=== PATIENT | female | born 1970 | race Asian ===

== ENCOUNTER 2023-10-22 15:30 | Outpatient (CLI) | payer MEDICAID ==
[2023-10-22 22:11] LABS: BACTERIAL VAGINOSIS DNA POSITIVE (NEGATIVE); CANDIDA GLABRATA DNA NEGATIVE (NEGATIVE); CANDIDA GROUP DNA NEGATIVE (NEGATIVE); CANDIDA KRUSEI DNA NEGATIVE (NEGATIVE); TRICHOMONAS VAGINALIS DNA NEGATIVE (NEGATIVE)
== END 2023-10-22 15:45 | disposition home or self-care (01) ==
LOC: LAB.N 15:30
PROVIDERS: ATTEND Physician Assistant
DX: R30.0 Dysuria (principal)
CPT/HCPCS: 81514